=== PATIENT | female | born 1965 | race Caucasian/White ===

== ENCOUNTER → 2020-04-15 09:48 | Outpatient (CLI) | payer OTHER, SELFPAY ==
--- NOTE | 2020-04-15 09:48 | COLBX_PTH ---
PATIENT: BRAIN VIRAMONTES LOC: [facility] U#:[id number] AGE/SX: 60/F ROOM: RE04/15/[address]: Dr. Jose Rodríguez MD : 1965 BED: DIS: SPEC #: [id number] RECD: 04/15/20 17:03 STATUS: VALENTIN ARRIAZA #: [id number] BRAXTON: 04/15/20 09:[address]: Jose Rodríguez DEPT: SURGICAL PATHOLOGY RECD BY: Ladi Lozano Tissues: Sigmoid colon biopsy Procedures: Surgery Specimen Level IV HEADER OPERATION: Colonoscopy with biopsy PRE-OP DIAGNOSIS: Z80.0 TISSUE SUBMITTED: Sigmoid colon polyp MICROSCOPIC DIAGNOSIS Sigmoid colon polyp, biopsy: Hyperplastic polyp. AM:marcelo 04/18/20 MICROSCOPIC DESCRIPTION Slides are reviewed. GROSS DESCRIPTION Received in fixative is one container labeled with the patient's name and designated sigmoid colon polyp. The specimen consists of one irregular fragment of light durand soft tissue that measures 0.3 x 0.3 x 0.1 cm. The specimen is totally submitted in one cassette. / AM:marcelo 04/16/20 TC:5 CPT: 30039
== END ==
PROVIDERS: Referring Provider Internal Medicine Gastroenterology; Visit Provider Internal Medicine Gastroenterology
DX: K63.5 Polyp of colon (principal); Z80.0 Family history of malignant neoplasm of digestive organs
CPT/HCPCS: 88305